=== PATIENT | male | born 1955 | race Caucasian/White ===

== ENCOUNTER 2019-04-20 08:55 | Outpatient (CLI) | payer OTHER ==
--- NOTE | 2019-04-20 09:07 | RAD ---
EXAM: Chest PA and lateral: HISTORY: Dyspnea COMPARISON: 11/16/2018 FINDINGS: Heart: Normal cardiac silhouette Aorta: Unremarkable Pulmonary vessels: Normal Costophrenic angles: Costophrenic angles are clear. Lungs: No consolidation or masses. There are chronic interstitial changes. Pneumothorax: No pneumothorax Osseous structures: No osseous abnormalities IMPRESSION: No acute cardiopulmonary process.
== END 2019-04-20 08:56 | disposition home or self-care (01) ==
LOC: RAD 08:55
PROVIDERS: ATTEND Internal Medicine Critical Care Medicine
DX: R06.00 Dyspnea, unspecified (principal)
CPT/HCPCS: 71046

== ENCOUNTER 2019-11-07 14:57 | Outpatient (CLI) | payer OTHER | END 2019-11-07 14:58 | disposition home or self-care (01) | LOC: CTENTCT 14:57 | PROVIDERS: ATTEND Otolaryngology Plastic Surgery within the Head & Neck | DX: J32.9 Chronic sinusitis, unspecified (principal) | CPT/HCPCS: 70486 ==

== ENCOUNTER 2019-11-13 09:53 | Outpatient (CLI) | payer OTHER ==
[2019-11-14 11:10] LABS: SARS-CoV-2 MS2 Positive; SARS-CoV-2 N Gene Negative; SARS-CoV-2 S Gene Negative; SARS-CoV-2 orf1ab Negative
== END 2019-11-13 09:54 | disposition home or self-care (01) ==
LOC: LABBT 09:53
PROVIDERS: ATTEND Otolaryngology Plastic Surgery within the Head & Neck
DX: Z01.818 Encounter for other preprocedural examination (principal); Z11.59 Encounter for screening for other viral diseases; J32.9 Chronic sinusitis, unspecified; J34.3 Hypertrophy of nasal turbinates; J32.0 Chronic maxillary sinusitis; J32.1 Chronic frontal sinusitis; J32.2 Chronic ethmoidal sinusitis; J32.3 Chronic sphenoidal sinusitis; B49 Unspecified mycosis; J33.9 Nasal polyp, unspecified
CPT/HCPCS: 87635; 93005; 93010; U0003

== ENCOUNTER 2019-11-15 10:14 | Day surgery (SDC) | payer OTHER ==
[2019-11-13 15:35] VITALS: BMI 24.1
[2019-11-15] MEDS ORDERED: AFRIN NASAL MIST 15 ML BOT ONE ×2 (10:32→12:37)
[2019-11-15] MEDS ORDERED: Famotidine/PF 20 mg/2ml Vial ONE (11:07)
[2019-11-15] MEDS ORDERED: Midazolam HCl 2 mg/2 ml Vial ONE (11:07)
[2019-11-15] MEDS ORDERED: Succinylcholine Chloride 20 MG/ML 10 ml SYRINGE FS ONE (12:14)
[2019-11-15] MEDS ORDERED: Rocuronium Bromide 10 MG/ML (10ML VIAL) ONE (12:14)
[2019-11-15] MEDS ORDERED: PROPOFOL 200 MG/20 ML VIAL ONE (12:14)
[2019-11-15] MEDS ORDERED: Lidocaine 1% PF 5 ML VIAL ONE (12:14)
[2019-11-15] MEDS ORDERED: Ondansetron PF 4 MG/2 ML Vial ONE (12:14)
[2019-11-15] MEDS ORDERED: Dexamethasone 20 MG/5 ML VIAL ONE (12:14)
[2019-11-15] MEDS ORDERED: Lidocaine 1% w/Epinephrine 1:100K 20 ML VIAL ONE (12:37)
[2019-11-15] MEDS ORDERED: Fentanyl 100 MCG/2 ML VIAL ONE ×3 (12:43→14:58)
[2019-11-15] MEDS ORDERED: methylPREDNISolone Acetate 40 mg/ml Vial ONE (13:35)
[2019-11-15] MEDS ORDERED: Hydrocodone-Acetamin 15 ML UDCUP ONE (17:25)
--- NOTE | 2019-11-16 08:31 | OP ---
DATE OF PROCEDURE: 11/15/2019 PREOPERATIVE DIAGNOSES: 1. Bilateral chronic pansinusitis. 2. Bilateral nasal polyposis. 3. Allergic fungal sinusitis. 4. Bilateral inferior turbinate hypertrophy. 5. Nasal obstruction. POSTOPERATIVE DIAGNOSES: 1. Bilateral chronic pansinusitis. 2. Bilateral nasal polyposis. 3. Allergic fungal sinusitis. 4. Bilateral inferior turbinate hypertrophy. 5. Nasal obstruction. PROCEDURES PERFORMED: 1. Bilateral endoscopic sinus surgery, total ethmoidectomies including sphenoidotomies with removal of tissue. 2. Bilateral endoscopic sinus surgery, maxillary antrostomies with removal of tissue. 3. Bilateral endoscopic sinus surgery, frontal sinusotomies with removal of tissue. 4. Bilateral inferior turbinate submucosal resection. 5. [employer] stereotactic image-guided sinus surgery. ESTIMATED BLOOD LOSS: 50 mL. COMPLICATIONS: None. ANESTHESIA: GETA. DESCRIPTION OF PROCEDURE: BILATERAL ENDOSCOPIC SINUS SURGERY, TOTAL ETHMOIDECTOMY AND MAXILLARY ANTROSTOMIES: Following this, 1% lidocaine with 1:100,000 epinephrine were injected into the middle turbinates and lateral nasal wall bilaterally. Following this, the 0-degree endoscope was used to visualize the middle turbinate and the middle turbinate was medially fractured using a [place] elevator. Following this, the uncinate process was identified and was examined. The uncinate process was noted to be inflamed and laterally displaced bilaterally. Following this, a ball-ended probe was used to anteriorly fracture the uncinate process bilaterally. Following this, the 0-degree microdebrider and the up-biting [place]akes[place] forceps were used to remove the uncinate process bilaterally. Following this, the natural maxillary sinus ostia was identified with the 0-degree endoscope and the ball-ended probe. The natural maxillary ostia were then widened using a 40-degree microdebrider and the straight [place]akes[place] forceps bilaterally. Following this, the ethmoidal bulla was identified bilaterally. A 0-degree microdebrider was used to puncture the ethmoidal bulla on its medial and inferior aspect bilaterally. Following this, the 0-degree microdebrider and the up-biting Blakesley forceps were used to remove the ethmoidal bulla. Following this, the grand lamella was identified posterior to this area and was punctured using the 0-degree microdebrider bilaterally. Following this, the ethmoidal cells were opened from the posterior to the anterior using the 0-degree microdebrider, the 40-degree microdebrider and the up-biting Blakesley forceps bilaterally. Following this, the 45-degree endoscope and the 40-degree microdebrider blade were used to further remove the anterior ethmoidal cells to the level of the frontal sinus recess bilaterally. Following this, a 40-degree microdebrider blade was used to remove nasal polyps and allergic fungal debris from the maxillary sinuses bilaterally. Following this, nasal polyps were removed from the ethmoidal sinuses bilaterally as well as from the sphenoid sinus. The sphenoid sinus ostia was identified and was punctured using the 0-degree microdebrider bilaterally. The sphenoid sinus ostia were widened in a medial and inferior direction removing nasal polypoid tissue and allergic fungal debris from the sphenoid sinuses bilaterally. Following this, a 45-degree endoscope along with the 40-degree microdebrider blade was used to further open the frontal recess cells bilaterally and expose the frontal sinus ostia. Nasal polyps were removed from the frontal sinus bilaterally using up-biting Blakesley forceps and the 40-degree microdebrider blade. The frontal sinus ostia was also widened bilaterally using the 40-degree microdebrider blade. Following this, the inferior turbinates were punctured on the anterior-inferior aspect and submucosal resection was performed of the anterior and inferior portions of the inferior turbinates bilaterally. Prior to the beginning of the procedure, the [employer] image-guided system was set up and calibrated, was noted to be within 1 mm of accuracy. All instruments used in the nose were under image guidance. Following this, the nasal cavity was irrigated and NasoPore packing was placed in the middle meatus. Steroid intranasal stents were placed within the sphenoid sinus and the frontal sinus and the maxillary sinuses bilaterally. The patient tolerated the procedure well. Job ID: [id number]
== END 2019-11-15 18:27 | disposition home or self-care (01) ==
LOC: SDC 10:14
PROVIDERS: ATTEND Otolaryngology Plastic Surgery within the Head & Neck
PROC: 09BL8ZZ Excision of Nasal Turbinate, Via Natural or Artificial Opening Endoscopic (ICD-10-PCS; principal; 2019-11-15)
PROC: 09BS8ZZ Excision of Right Frontal Sinus, Via Natural or Artificial Opening Endoscopic (ICD-10-PCS; principal; 2019-11-15)
PROC: 099R8ZZ Drainage of Left Maxillary Sinus, Via Natural or Artificial Opening Endoscopic (ICD-10-PCS; principal; 2019-11-15)
PROC: 09BV8ZZ Excision of Left Ethmoid Sinus, Via Natural or Artificial Opening Endoscopic (ICD-10-PCS; principal; 2019-11-15)
PROC: 09BU8ZZ Excision of Right Ethmoid Sinus, Via Natural or Artificial Opening Endoscopic (ICD-10-PCS; principal; 2019-11-15)
PROC: 099Q8ZZ Drainage of Right Maxillary Sinus, Via Natural or Artificial Opening Endoscopic (ICD-10-PCS; principal; 2019-11-15)
PROC: 09BT8ZZ Excision of Left Frontal Sinus, Via Natural or Artificial Opening Endoscopic (ICD-10-PCS; principal; 2019-11-15)
PROC: 099X8ZZ Drainage of Left Sphenoid Sinus, Via Natural or Artificial Opening Endoscopic (ICD-10-PCS; principal; 2019-11-15)
PROC: 099W8ZZ Drainage of Right Sphenoid Sinus, Via Natural or Artificial Opening Endoscopic (ICD-10-PCS; principal; 2019-11-15)
PROC: 8E09XBZ Computer Assisted Procedure of Head and Neck Region (ICD-10-PCS; principal; 2019-11-15)
DX: J32.4 Chronic pansinusitis (principal); J33.9 Nasal polyp, unspecified; J34.3 Hypertrophy of nasal turbinates; J34.89 Other specified disorders of nose and nasal sinuses; B49 Unspecified mycosis; E78.5 Hyperlipidemia, unspecified; J45.30 Mild persistent asthma, uncomplicated; Z79.82 Long term (current) use of aspirin; Z79.84 Long term (current) use of oral hypoglycemic drugs; Z79.899 Other long term (current) drug therapy
CPT/HCPCS: C2625; J1100; J2001; J2250; J2405; J2704; J2960; J3010; S0028

== ENCOUNTER 2020-08-28 08:59 | Day surgery (SDC) | payer OTHER ==
[2020-08-27 11:18] VITALS: BMI 22.4
[2020-08-28] MEDS ORDERED: AFRIN NASAL MIST 15 ML BOT ONE ×2 (09:23→11:03)
[2020-08-28] MEDS ORDERED: Famotidine/PF 20 mg/2ml Vial ONE (09:52)
[2020-08-28] MEDS ORDERED: Midazolam HCl 2 mg/2 ml Vial ONE (09:52)
[2020-08-28] MEDS ORDERED: Scopolamine 1.5 mg/72 hour Patch ONE (09:56)
[2020-08-28] MEDS ORDERED: EPINEPHrine 1 MG/ML AMP ONE (11:02)
[2020-08-28] MEDS ORDERED: Lidocaine 1% w/Epinephrine 1:100K 20 ML VIAL ONE (11:02)
[2020-08-28] MEDS ORDERED: Bacitracin Zinc Ointment 30 gm TUBE ONE (11:03)
[2020-08-28] MEDS ORDERED: SUGAMMADEX SODIUM 200 MG/2 ML VIAL ONE (11:06)
[2020-08-28] MEDS ORDERED: Fentanyl 100 MCG/2 ML VIAL ONE ×2 (11:06)
[2020-08-28] MEDS ORDERED: PHENYLEPHRINE-NS 100 MCG/ML 10 ML SYRINGE ONE (11:27)
[2020-08-28] MEDS ORDERED: PROPOFOL 200 MG/20 ML VIAL ONE (11:27)
[2020-08-28] MEDS ORDERED: Ondansetron PF 4 MG/2 ML Vial ONE (11:27)
[2020-08-28] MEDS ORDERED: diphenhydrAMINE 50 MG/ML VIAL ONE (11:27)
[2020-08-28] MEDS ORDERED: Rocuronium Bromide 10 MG/ML (10ML VIAL) ONE (11:27)
[2020-08-28] MEDS ORDERED: Lidocaine 1% PF 5 ML VIAL ONE (11:27)
[2020-08-28] MEDS ORDERED: Metoclopramide HCl 10 MG/2 ML VIAL ONE (11:27)
[2020-08-28] MEDS ORDERED: methylPREDNISolone Acetate 40 mg/ml Vial ONE (12:17)
== END 2020-08-28 14:45 | disposition home or self-care (01) ==
LOC: SDC 08:59
PROVIDERS: ATTEND Otolaryngology Plastic Surgery within the Head & Neck
PROC: 09TL8ZZ Resection of Nasal Turbinate, Via Natural or Artificial Opening Endoscopic (ICD-10-PCS; principal; 2020-08-28)
PROC: 09BQ8ZZ Excision of Right Maxillary Sinus, Via Natural or Artificial Opening Endoscopic (ICD-10-PCS; principal; 2020-08-28)
PROC: 09BR8ZZ Excision of Left Maxillary Sinus, Via Natural or Artificial Opening Endoscopic (ICD-10-PCS; principal; 2020-08-28)
PROC: 09BT8ZZ Excision of Left Frontal Sinus, Via Natural or Artificial Opening Endoscopic (ICD-10-PCS; principal; 2020-08-28)
PROC: 09BX8ZZ Excision of Left Sphenoid Sinus, Via Natural or Artificial Opening Endoscopic (ICD-10-PCS; principal; 2020-08-28)
PROC: 09TU8ZZ Resection of Right Ethmoid Sinus, Via Natural or Artificial Opening Endoscopic (ICD-10-PCS; principal; 2020-08-28)
PROC: 09TV8ZZ Resection of Left Ethmoid Sinus, Via Natural or Artificial Opening Endoscopic (ICD-10-PCS; principal; 2020-08-28)
PROC: 09BS8ZZ Excision of Right Frontal Sinus, Via Natural or Artificial Opening Endoscopic (ICD-10-PCS; principal; 2020-08-28)
PROC: 09BW8ZZ Excision of Right Sphenoid Sinus, Via Natural or Artificial Opening Endoscopic (ICD-10-PCS; principal; 2020-08-28)
PROC: 8E09XBZ Computer Assisted Procedure of Head and Neck Region (ICD-10-PCS; principal; 2020-08-28)
DX: J32.9 Chronic sinusitis, unspecified (principal); J34.3 Hypertrophy of nasal turbinates; J33.8 Other polyp of sinus; J30.89 Other allergic rhinitis; E78.5 Hyperlipidemia, unspecified; J45.30 Mild persistent asthma, uncomplicated; Z79.82 Long term (current) use of aspirin; Z79.84 Long term (current) use of oral hypoglycemic drugs; Z79.899 Other long term (current) drug therapy
CPT/HCPCS: 87070; 87102; 87205; 87206; 88304; 93005; 93010; C2625; J0171; J1200; J2250; J2405; J2704; J2765; J2920; J3010; S0028

== ENCOUNTER 2020-09-03 10:47 | Outpatient (CLI) | payer OTHER | END 2020-09-03 10:48 | disposition home or self-care (01) | LOC: SCSRAD 10:47 | PROVIDERS: ATTEND Otolaryngology Plastic Surgery within the Head & Neck | DX: S22.39XA Fracture of one rib, unspecified side, initial encounter for closed fracture (principal) | CPT/HCPCS: 71110 ==

== ENCOUNTER 2020-11-25 07:55 | Outpatient (CLI) | payer OTHER | END 2020-11-25 07:56 | disposition home or self-care (01) | LOC: BICRAD 07:55 | PROVIDERS: ATTEND Internal Medicine Critical Care Medicine | DX: R06.00 Dyspnea, unspecified (principal) | CPT/HCPCS: 71046 ==

== ENCOUNTER 2022-02-05 07:52 | Outpatient (CLI) | payer BC ==
[2022-02-05] MEDS ORDERED: Iopamidol 370 76% 100 ML VIAL ONE (13:52)
== END 2022-02-05 07:53 | disposition home or self-care (01) ==
LOC: CT 07:52
DX: R05.3 Chronic cough (principal); J47.9 Bronchiectasis, uncomplicated; J98.09 Other diseases of bronchus, not elsewhere classified
CPT/HCPCS: 71250; 71275; 82565; Q9967